=== PATIENT | female | born 1955 ===

== ENCOUNTER 2018-07-23 08:52 | Emergency (ER) | payer OTHER ==
[2018-07-23 09:03] VITALS: BMI 24.0
[2018-07-23] MEDS ORDERED: Sodium Chloride 0.9% 1,000 ML IV ONE (09:18)
[2018-07-23 09:32] LABS: BASO # 0.1 K/uL (0.0-0.2); BASO % 0.4 % (0.0-2.0); HEMOGLOBIN 14.2 g/dL (11.0-16.0); LYMPH % 7.5 % (20.0-40.0); MEAN CELL VOLUME 83.7 fL (81.0-99.0); MEAN CORPUSCULAR HEMOGLOBIN 27.1 pg (27.0-31.0); MEAN CORPUSCULAR HGB CONC 32.4 g/dL (33.0-37.0); MEAN PLATELET VOLUME 8.1 fL (7.2-11.7); MONO # 0.4 K/uL (0.0-0.8); MONO % 3.2 % (0.0-10.0); NEUT # 11.8 K/uL (1.8-7.0); NEUT % 88.9 % (50.0-75.0); PLATELET COUNT 253 K/uL (130-400); RBC 5.22 Mil/uL (3.80-5.20); RED CELL DISTRIBUTION WIDTH 13.8 % (11.5-14.5)
[2018-07-23] MEDS ORDERED: Sodium Chloride 0.9% 1,000 ML ONE (09:33)
[2018-07-23 09:34] LABS: WHITE BLOOD COUNT 13.3 K/uL (4.8-10.8)
[2018-07-23 10:03] LABS: EOSINOPHIL 1 % (0-4); LYMPHOCYTE 8 % (20-40); MONOCYTE 2 % (0-10); NEUTROPHIL 89 % (50-75); PLATELET ESTIMATE NORMAL (NORMAL); TOTAL CELLS COUNTED 100
[2018-07-23 10:04] LABS: ANISOCYTOSIS SLIGHT; GIANT PLATELETS PRESENT; LARGE PLATELETS PRESENT; POIKILOCYTOSIS SLIGHT
[2018-07-23 10:07] LABS: ALB/GLOB RATIO 1.4 (1.0-2.1); ALBUMIN 4.9 g/dL (3.5-5.0); ALT/SGPT 37 U/L (9-52); AST/SGOT 42 U/L (14-36); BLOOD UREA NITROGEN 17 mg/dL (7-17); CALCIUM 10.9 mg/dl (8.6-10.4); GFR NON-AFRICAN AMERICAN > 60; LIPASE 176 U/L (23-300)
[2018-07-23 10:09] LABS: SQUAMOUS EPITHIAL 2 /hpf (0-5); URINE BILIRUBIN NEGATIVE (NEGATIVE); URINE BLOOD 1+ (NEGATIVE); URINE CALCIUM OXALATE CRYSTALS OCC /hpf (<OCC); URINE CLARITY Hazy (Clear); URINE COLOR Amber (YELLOW); URINE GLUCOSE (UA) NORMAL (Normal); URINE LEUKOCYTE ESTERASE NEG Leu/uL (Negative); URINE PROTEIN 1+ mg/dL (NEGATIVE); URINE UROBILINOGEN NORMAL mg/dL (0.2-1.0)
[2018-07-23] MEDS ORDERED: Iohexol 350mg/ml 100 ML ONE (10:32)
[2018-07-23 11:16] VITALS: RESP 16
--- NOTE | 2018-07-23 11:24 | C.PDOC ---
History Of Present Illness 62-year-old female, presents to the emergency department with complaints of epigastric abdominal pain, that is associated with nausea and non-bloody/non-bilious vomiting. Patient states she is feeling bloated. She had a bowel movement this morning and states it is normal. Denies fever, chills chest pain, back pain, symptoms, diarrhea. Time Seen by Provider: 07/23/18 09:17 Chief Complaint (Nursing): Abdominal Pain History Per: Patient History/Exam Limitations: no limitations Current Symptoms Are (Timing): Still Present Past Medical History Reviewed: Historical Data, Nursing Documentation, Vital Signs Vital Signs: Last Vital Signs Temp 97.9 F 07/23/18 09:03 Pulse 75 07/23/18 09:03 Resp 18 07/23/18 09:03 BP 108/77 07/23/18 09:03 Pulse Ox 100 07/23/18 09:03 - Medical History PMH: Hyperlipidemia - [facility] Procedures D & C NEC (08/31/13) UTERINE LES DESTRUCT NEC (08/31/13) Family History: States: No Known Family Hx - Social History Hx Alcohol Use: No Hx Substance Use: No - Immunization History Hx Influenza Vaccination: No Hx Pneumococcal Vaccination: No Review Of Systems Constitutional: Negative for: Fever, Chills Cardiovascular: Negative for: Chest Pain Respiratory: Negative for: Shortness of Breath Gastrointestinal: Positive for: Nausea, Vomiting, Abdominal Pain. Negative for: Diarrhea, Constipation, Hematemesis Genitourinary: Negative for: Dysuria, Frequency, Hematuria, Vaginal Discharge, Vaginal Bleeding Musculoskeletal: Negative for: Back Pain Physical Exam - Physical Exam Appears: Non-toxic, No Acute Distress Skin: Warm, Dry, No Rash Head: Atraumatic, Normacephalic Eye(s): bilateral: Normal Inspection Nose: Normal Oral Mucosa: Moist Lips: Normal Appearing Neck: Normal ROM Cardiovascular: Rhythm Regular, No Murmur Respiratory: Normal Breath Sounds, No Accessory Muscle Use Gastrointestinal/Abdominal: Soft, Tenderness (mild, epigastric), No Guarding, No Rebound Back: Normal Inspection Extremity: Normal ROM, No Deformity Neurological/Psych: Oriented x3, Normal Speech ED Course And Treatment - Laboratory Results Result Diagrams: 07/23/18 09:28 07/23/18 09:28 Lab Interpretation: Abnormal O2 Sat by Pulse Oximetry: 100 Pulse Ox Interpretation: Normal (RA) - CT Scan/US ct Other Rad Studies (CT/US): Read By Radiologist, Radiology Report Reviewed CT/US Interpretation: Accession No. : [id number]. Patient Name / ID : AMEENA CHRISTIAN / [id number]. Exam Date : 07/23/2018 11:57:55 ( Approved ). Study Comment : Sex / Age : F / 62Y. Creator : Chary Chappell. Dictator : Kasia Montoya MD. Senior National Account Manager : Manager Molecular : Kasia Montoya MD. Approver2 : Report Date : 07/23/2018 12:28:36. My Comment : . Date of service: 07/23/2018. PROCEDURE: CT Abdomen and Pelvis with contrast. HISTORY: epigastric pain w. vomiting. COMPARISON: None available. TECHNIQUE: Contrast dose: 100 mL Visipaque 320. Radiation dose: Total exam DLP = 591.22 mGy-cm. This CT exam was performed using one or more of the following dose reduction techniques: Automated exposure control, adjustment of the mA and/or kV according to patient size, and/or use of iterative reconstruction technique. FINDINGS: LOWER THORAX: No visible consolidation, pleural effusion, or pneumothorax. Small hiatal hernia. LIVER: 2 mm hepatic hypodensity, too small to character ize. GALLBLADDER AND BILE DUCTS: Unremarkable. PANCREAS: Unremarkable. SPLEEN: Unremarkable. ADRENALS: Unremarkable. KIDNEYS AND URETERS: The kidneys enhance symmetrically. No hydronephrosis or obstructing calculus identified. VASCULATURE: No aortic aneurysm. Mild atherosclerotic calcifi cations the aorta. No significant mural plaque appreciated. BOWEL: Stomach is nondistended. Lack of oral contrast limits evaluation for bowel pathology. Bowel loops appear within normal limits of caliber without evidence of obstruction. APPENDIX: The appendix appears within normal limits of caliber. No secondary signs of acute appendicitis. PERITONEUM: No significant free fluid. No definite free air. LYMPH NODES: No bulky adenopathy identified. BLADDER: Unremarkable. REPRODUCTIVE: The uterus is present. BONES: Osseous demineralization. Degenerative changes. OTHER FINDINGS: None. IMPRESSION: No acute pathology identified. Incidental findings as above. Medical Decision Making Medical Decision Making: Plan: * CT ABd/Pel * Bloodwork * Toradol, Zofran, Benadryl, Pepcid, Solumedrol, IVF * UA Reassess and Disposition Note the patient initially refused CT with IV contrast, she has no known allergy to contrast or shellfish but states she has been having rash for one month and recently finished course of steroids last week. She then agreed to CT with IV benadryl and solumedrol. CT was performed and showed no acute findings. Labs had shown leukocytosis, possible elevation from recent steroid use. Patient remained afebrile and in no distress. She reported feeling much better and was ready to be discharged home. I provided copy of lab and CT report. Disposition Counseled Patient/Family Regarding: Diagnosis, Need For Followup, Rx Given - Disposition Referrals: Phoebe Loredo MD [Medical Doctor] - Disposition: HOME/ ROUTINE Disposition Time: 13:23 Condition: STABLE Additional Instructions: Follow up with your primary medical doctor or clinic in 2-5 days for further evaluation. Return to the emergency department at any time if symptoms persist o r worsen. Prescriptions: Atropine/Hyoscyamine [] 1 tab PO Q8 #20 tab Ondansetron ODT [Zofran ODT] 1 odt PO BID PRN #6 odt PRN Reason: Nausea/Vomiting Instructions: Acute Abdomen (Belly Pain), Adult (DC) Forms: [facility] (Algerian) - POA Present On Arrival: None - Clinical Impression Clinical Impression: Abdominal pain - Scribe Statement The provider has reviewed the documentation as recorded by the Scribe (Christina Matthews) All medical record entries made by the Scribe were at my direction and personally dictated by me. I have reviewed the chart and agree that the record accurately reflects my personal performance of the history, physical exam, medical decision making, and the department course for this patient. I have also personally directed, reviewed, and agree with the discharge instructions and disposition.
[2018-07-23] MEDS ORDERED: MethylPREDNISolone 40 mg Vial IVP STA (11:26)
[2018-07-23] MEDS ORDERED: DiphenhydrAMINE 50 mg/ml Inj IVP STA (11:26)
[2018-07-23] MEDS ORDERED: DiphenhydrAMINE 50 mg/ml Inj ONE (11:40)
[2018-07-23] MEDS ORDERED: MethylPREDNISolone 40 mg Vial ONE (11:40)
[2018-07-23] MEDS ORDERED: Iodixanol 320 mg/ml 150 ml Bottle IV ONE (11:48)
--- NOTE | 2018-07-23 12:45 | CT ---
Date of service: 07/23/2018 PROCEDURE: CT Abdomen and Pelvis with contrast HISTORY: epigastric pain w. vomiting COMPARISON: None available. TECHNIQUE: Contrast dose: 100 mL Visipaque 320 Radiation dose: Total exam DLP = 591.22 mGy-cm. This CT exam was performed using one or more of the following dose reduction techniques: Automated exposure control, adjustment of the mA and/or kV according to patient size, and/or use of iterative reconstruction technique. FINDINGS: LOWER THORAX: No visible consolidation, pleural effusion, or pneumothorax. Small hiatal hernia. LIVER: 2 mm hepatic hypodensity, too small to characterize. GALLBLADDER AND BILE DUCTS: Unremarkable. PANCREAS: Unremarkable. SPLEEN: Unremarkable. ADRENALS: Unremarkable. KIDNEYS AND URETERS: The kidneys enhance symmetrically. No hydronephrosis or obstructing calculus identified. VASCULATURE: No aortic aneurysm. Mild atherosclerotic calcifications the aorta. No significant mural plaque appreciated. BOWEL: Stomach is nondistended. Lack of oral contrast limits evaluation for bowel pathology. Bowel loops appear within normal limits of caliber without evidence of obstruction. APPENDIX: The appendix appears within normal limits of caliber. No secondary signs of acute appendicitis. PERITONEUM: No significant free fluid. No definite free air. LYMPH NODES: No bulky adenopathy identified. BLADDER: Unremarkable. REPRODUCTIVE: The uterus is present. BONES: Osseous demineralization. Degenerative changes. OTHER FINDINGS: None. IMPRESSION: No acute pathology identified. Incidental findings as above.
[2018-07-23 13:40] VITALS: BP 102/61; PULSE 64; TEMP 98.1
[2018-07-23 14:00] VITALS: O2SAT 100
== END 2018-07-23 13:39 | disposition home or self-care (01) ==
LOC: C.ER 08:52
DX: R10.9 Unspecified abdominal pain (principal); E78.5 Hyperlipidemia, unspecified
CPT/HCPCS: 74177; 80053; 81001; 83690; 85025; 96361; 96374; 96375; 99285; J1200; J1885; J2405; J2920; J7030; Q9967